=== PATIENT | female | born 1930 | race Caucasian/White ===

== ENCOUNTER 2017-02-18 13:08 | Inpatient (IN) | payer OTHER ==
[~2017-02-18] VITALS: Ht 142.2 cm; Wt 115.2 kg
[~2017-02-18 13:08] MED LIST: APIXABAN PO; ASPIR 8181 MG PO; ATORVASTATIN CA40 M1 PO; BACTRIM DS1 TAB PO; CLINDAMYCIN HC300 MG PO; COL100 PO; COLACE100 MG PO; COR3 PO; COZ50 PO; ELIQUIS2.5 MG PO; ELIQUIS5 MG PO; GLU500 PO; HYD25 PO; IPRATROPIUM BROM3 M2 HHN; KLOR-CON M1010 MEQ PO; L40 PO; LAC PO; LASIX40 MG PO; LEVAQUIN750 MG PO; LEVOTHYROXIN0.025 M2 PO; LEXAPRO PO; LEXAPRO10 MG PO; LOSARTAN POTASS1 TA6 PO; MAC100 PO; MEDDP PO; MICROZIDE PO; MOM PO; NEURONTIN100 MG PO; NOR5 PO; PRI20 PO; PRO40 PO; PROTONIX40 MG PO; PROVENTIL0.09 MG/A1 INH; PULMICORT0.5 MG/2 M IH; ROBCF PO; TRE400 PO; ZOS3PM IV
[2017-02-18 14:24] LABS: BASOPHIL % 0.3 % (0-2)
[2017-02-18 14:28] LABS: PLATELET COUNT 114 x10^3mcL (130-400); RED CELL DISTRIBUTION WIDTH 20.7 % (11.5-14.5)
[2017-02-18 14:38] LABS: CALCIUM 7.8 mg/dL (8.5-10.1); CARBON DIOXIDE 26.9 mmol/L (21-32); CHLORIDE SERUM 103 mmol/L (98-107); GLUCOSE SERUM 176 mg/dL (74-106); SODIUM SERUM 137 mmol/L (136-145)
[2017-02-18 14:41] LABS: ALBUMIN 3.5 g/dL (3.4-5.0); ALKALINE PHOSPHATASE 133 U/L (46-116); ALT/SGPT 14 U/L (14-59); AST/SGOT 16 U/L (15-37); BILIRUBIN TOTAL 0.9 mg/dL (0.20-1.00); HDL CHOLESTEROL 49 mg/dL (40-60); LIPASE 141 IU/L (73-393); TOTAL PROTEIN, SERUM 6.8 g/dL (6.4-8.2); TRIGLYCERIDES 129 mg/dL (<150)
[2017-02-18 14:42] LABS: CHOLESTEROL 103 mg/dL (<200); CHOLESTEROL/HDL RATIO 2.1
[2017-02-18 15:01] LABS: microscopic required? YES; urine erythrocyte TRACE (NEGATIVE)
[2017-02-18] MEDS ORDERED: ALDACTONE25 MG PO (15:15)
[2017-02-18] MEDS ORDERED: LIPITOR40 MG PO (15:15)
[2017-02-18] MEDS ORDERED: CARVEDILOL3.125 M1 PO (15:15)
[2017-02-18] MEDS ORDERED: ENTRESTO1 TA2 PO (15:16)
[2017-02-18 15:31] LABS: T3 TOTAL 0.77 ng/mL; rbc morphology (normal/abnorm) ABNORMAL (NORMAL)
[2017-02-18 15:47] LABS: FREE T4 1.05 ng/dL (0.76-1.46); FREE THYROXINE INDEX 2.7 ug/dL (1.4-4.5); T4(THYROXINE) 7.6 ug/dL (4.7-13.3)
[2017-02-18 16:37] VITALS: BP 123/96
[2017-02-18 16:43] VITALS: Ht 142.2 cm; Wt 115.2 kg
[2017-02-18 17:23] LABS: PHOSPHOROUS 3.1 mg/dL (2.5-4.9)
[2017-02-18 17:29] VITALS: BP 123/96
[2017-02-18 21:36] VITALS: BP 104/48
[2017-02-19 05:50] VITALS: BP 101/61
[2017-02-19 07:33] LABS: RED BLOOD CELLS 4.18 M/mm3 (4.10-5.10)
[2017-02-19 07:35] LABS: TOTAL IRON BINDING CAPACITY 309 ug/dL (250-450)
[2017-02-19 07:36] LABS: IRON 33 ug/dL (50-170)
[2017-02-19 07:45] VITALS: BP 110/55
[2017-02-19 12:07] VITALS: BP 98/52
[2017-02-19 18:01] VITALS: BP 95/42
[2017-02-19 22:05] VITALS: BP 99/46
[2017-02-20 06:14] VITALS: BP 93/57
[2017-02-20 07:20] LABS: BASOPHIL % 0.4 % (0-2)
[2017-02-20 07:22] LABS: CALCIUM 8.1 mg/dL (8.5-10.1); CARBON DIOXIDE 30.2 mmol/L (21-32); CHLORIDE SERUM 105 mmol/L (98-107); CREATININE SERUM 0.9 mg/dL (0.6-1.0); GLUCOSE SERUM 96 mg/dL (74-106); PHOSPHOROUS 3.5 mg/dL (2.5-4.9); PLATELET COUNT 86 x10^3mcL (130-400); POTASSIUM SERUM 4.3 mmol/L (3.5-5.1); RED CELL DISTRIBUTION WIDTH 20.8 % (11.5-14.5); SODIUM SERUM 138 mmol/L (136-145)
[2017-02-20] MEDS ORDERED: MECLIZINE HCL12.5 MG PO (08:25)
[2017-02-20] MEDS ORDERED: MYCP TOP (08:26)
[2017-02-20] MEDS ORDERED: PROTONIX40 MG/Pac1 PO (08:27)
[2017-02-20 09:03] VITALS: BP 101/61
[2017-02-20 09:24] VITALS: BP 101/61
[2017-02-20] MEDS ORDERED: NEU300 PO (09:30)
[2017-02-20] MEDS ORDERED: ROBAXIN-750750 MG PO (09:33)
[2017-02-20 11:15] VITALS: BP 101/61
== END 2017-02-20 12:46 | disposition home health service (06) | DRG 391 ==
LOC: ED 13:08 → DU 15:25 → MU 02-20 06:52
PROVIDERS: Family Medicine; Specialist; ADMIT Family Medicine Sports Medicine
DX: K21.9 Gastro-esophageal reflux disease without esophagitis (principal); I50.43 Acute on chronic combined systolic (congestive) and diastolic (congestive) heart failure; Z68.43 Body mass index [BMI] 50.0-59.9, adult; D68.69 Other thrombophilia; I69.354 Hemiplegia and hemiparesis following cerebral infarction affecting left non-dominant side; E11.65 Type 2 diabetes mellitus with hyperglycemia; D64.9 Anemia, unspecified; E03.9 Hypothyroidism, unspecified; Z95.0 Presence of cardiac pacemaker; Z79.82 Long term (current) use of aspirin; Z95.2 Presence of prosthetic heart valve; Z96.651 Presence of right artificial knee joint; Z88.8 Allergy status to other drugs, medicaments and biological substances; E66.01 Morbid (severe) obesity due to excess calories; G90.9 Disorder of the autonomic nervous system, unspecified; K74.60 Unspecified cirrhosis of liver; E83.51 Hypocalcemia; I11.0 Hypertensive heart disease with heart failure
CPT/HCPCS: 82962; 83880; 84439; 97110-GP; J7030; Q0092

== ENCOUNTER 2018-05-06 02:47 | Emergency (ER) | payer OTHER ==
[~2018-05-06] VITALS: Ht 142.2 cm; Wt 117.9 kg
[~2018-05-06 02:47] MED LIST changes: +ALDACTONE25 MG PO; +CARVEDILOL3.125 M1 PO; +ENTRESTO1 TA2 PO; +LIPITOR40 MG PO; +MECLIZINE HCL12.5 MG PO; +MYCP TOP; +NEU300 PO; +PROTONIX40 MG/Pac1 PO; +ROBAXIN-750750 MG PO
[2018-05-06 03:14] LABS: BASOPHIL % 0.4 % (0-2)
[2018-05-06 03:17] LABS: PLATELET COUNT 93 x10^3mcL (130-400)
[2018-05-06 03:56] LABS: CALCIUM 8.5 mg/dL (8.5-10.1); CARBON DIOXIDE 30.2 mmol/L (21-32); CHLORIDE SERUM 95 mmol/L (98-107); CREATININE SERUM 1.4 mg/dL (0.6-1.0); GLUCOSE SERUM 100 mg/dL (74-106); POTASSIUM SERUM 4.2 mmol/L (3.5-5.1); SODIUM SERUM 133 mmol/L (136-145)
[2018-05-06 04:02] LABS: ALBUMIN 3.4 g/dL (3.4-5.0); ALKALINE PHOSPHATASE 110 U/L (46-116); ALT/SGPT 15 U/L (14-59); AST/SGOT 17 U/L (15-37); BILIRUBIN TOTAL 0.8 mg/dL (0.20-1.00); LIPASE 198 IU/L (73-393); TOTAL PROTEIN, SERUM 6.5 g/dL (6.4-8.2)
[2018-05-06 07:20] VITALS: BP 121/78
== END 2018-05-06 07:20 | disposition home or self-care (01) ==
LOC: ED 02:47
PROVIDERS: Emergency Medicine
DX: R11.2 Nausea with vomiting, unspecified (principal); M25.512 Pain in left shoulder; I48.91 Unspecified atrial fibrillation; E11.9 Type 2 diabetes mellitus without complications; J45.909 Unspecified asthma, uncomplicated; I50.9 Heart failure, unspecified; I11.0 Hypertensive heart disease with heart failure; Z88.8 Allergy status to other drugs, medicaments and biological substances; Z95.0 Presence of cardiac pacemaker; Z98.890 Other specified postprocedural states; Z88.6 Allergy status to analgesic agent
CPT/HCPCS: 36415; J2270; Q0162

== ENCOUNTER 2018-05-12 14:13 | Emergency (ER) | payer OTHER ==
[~2018-05-12] VITALS: Ht 142.2 cm; Wt 122.5 kg
[2018-05-12 14:43] VITALS: Ht 142.2 cm; Wt 122.5 kg
[2018-05-12 16:20] LABS: BASOPHIL % 0.3 % (0-2)
[2018-05-12 16:27] LABS: PLATELET COUNT 92 x10^3mcL (130-400); RED CELL DISTRIBUTION WIDTH 17.4 % (11.5-14.5)
[2018-05-12 17:31] LABS: CALCIUM 8.2 mg/dL (8.5-10.1); CARBON DIOXIDE 30.1 mmol/L (21-32); CHLORIDE SERUM 90 mmol/L (98-107); CREATININE SERUM 1.8 mg/dL (0.6-1.0); GLUCOSE SERUM 95 mg/dL (74-106); POTASSIUM SERUM 4.4 mmol/L (3.5-5.1); SODIUM SERUM 128 mmol/L (136-145)
[2018-05-12 17:35] LABS: ALBUMIN 3.4 g/dL (3.4-5.0); ALKALINE PHOSPHATASE 126 U/L (46-116); ALT/SGPT 14 U/L (14-59); AST/SGOT 19 U/L (15-37); BILIRUBIN TOTAL 0.84 mg/dL (0.20-1.00); TOTAL PROTEIN, SERUM 6.6 g/dL (6.4-8.2)
[2018-05-12 19:43] VITALS: BP 96/53
== END 2018-05-12 19:43 | disposition short-term general hospital (02) ==
LOC: ED 14:13
PROVIDERS: Emergency Medicine
DX: R53.1 Weakness (principal); R79.89 Other specified abnormal findings of blood chemistry; I11.0 Hypertensive heart disease with heart failure; I50.9 Heart failure, unspecified; E11.9 Type 2 diabetes mellitus without complications; I48.91 Unspecified atrial fibrillation; Z86.73 Personal history of transient ischemic attack (TIA), and cerebral infarction without residual deficits; Z88.6 Allergy status to analgesic agent; Z88.8 Allergy status to other drugs, medicaments and biological substances
CPT/HCPCS: 36415; 83880

== ENCOUNTER 2018-08-26 15:13 | Inpatient (IN) | payer OTHER ==
[~2018-08-26] VITALS: Ht 167.6 cm; Wt 129.0 kg
[2018-08-26 15:22] VITALS: Ht 167.6 cm; Wt 129.0 kg
[2018-08-26 17:30] LABS: BASOPHIL % 0.4 % (0-2); CALCIUM 8.1 mg/dL (8.5-10.1); CARBON DIOXIDE 27.6 mmol/L (21-32); CHLORIDE SERUM 95 mmol/L (98-107); CREATININE SERUM 1.4 mg/dL (0.6-1.0); GLUCOSE SERUM 106 mg/dL (74-106); POTASSIUM SERUM 4.4 mmol/L (3.5-5.1); SODIUM SERUM 131 mmol/L (136-145)
[2018-08-26 17:31] LABS: PLATELET COUNT 87 x10^3mcL (130-400); RED CELL DISTRIBUTION WIDTH 15.5 % (11.5-14.5)
[2018-08-26 17:35] LABS: ALBUMIN 3.7 g/dL (3.4-5.0); ALKALINE PHOSPHATASE 123 U/L (46-116); ALT/SGPT 14 U/L (14-59); AST/SGOT 19 U/L (15-37); BILIRUBIN TOTAL 0.8 mg/dL (0.20-1.00); TOTAL PROTEIN, SERUM 6.9 g/dL (6.4-8.2)
[2018-08-26] MEDS ORDERED: ELIQUIS2.5 MG PO (18:09)
[2018-08-26] MEDS ORDERED: ALDACTONE25 MG PO (18:10)
[2018-08-26] MEDS ORDERED: METFORMIN HYDR500 M1 PO (18:10)
[2018-08-26] MEDS ORDERED: LIPITOR40 MG PO (18:10)
[2018-08-26] MEDS ORDERED: CARVEDILOL3.125 M1 PO (18:10)
[2018-08-26] MEDS ORDERED: LASIX40 MG PO (18:10)
[2018-08-26] MEDS ORDERED: PROTONIX40 MG PO (18:11)
[2018-08-26] MEDS ORDERED: LEXAPRO10 MG PO (18:11)
[2018-08-26] MEDS ORDERED: COLACE100 MG PO (18:11)
[2018-08-26] MEDS ORDERED: NEU300 PO (18:11)
[2018-08-26] MEDS ORDERED: TIROSINT25 MC1 PO (18:12)
[2018-08-26] MEDS ORDERED: PROAIR HFA8.5 GM IH (18:13)
[2018-08-26 20:52] VITALS: BP 107/54
[2018-08-27 06:05] VITALS: BP 91/51
[2018-08-27 06:27] LABS: BASOPHIL % 0.4 % (0-2)
[2018-08-27 06:49] LABS: ALKALINE PHOSPHATASE 92 U/L (46-116); ALT/SGPT 12 U/L (14-59); AST/SGOT 17 U/L (15-37); BILIRUBIN TOTAL 0.9 mg/dL (0.20-1.00); CALCIUM 8.1 mg/dL (8.5-10.1); CARBON DIOXIDE 30.6 mmol/L (21-32); CHLORIDE SERUM 100 mmol/L (98-107); CREATININE SERUM 1.3 mg/dL (0.6-1.0); GLUCOSE SERUM 87 mg/dL (74-106); MAGNESIUM 2.3 mg/dL (1.8-2.4); POTASSIUM SERUM 4.8 mmol/L (3.5-5.1); SODIUM SERUM 136 mmol/L (136-145)
[2018-08-27 06:51] LABS: ALBUMIN 3.1 g/dL (3.4-5.0); TOTAL PROTEIN, SERUM 5.8 g/dL (6.4-8.2)
[2018-08-27 07:21] LABS: PLATELET COUNT 73 x10^3mcL (130-400); RED CELL DISTRIBUTION WIDTH 15.2 % (11.5-14.5)
[2018-08-27 09:47] VITALS: BP 97/51
[2018-08-27 13:43] VITALS: BP 91/54
[2018-08-27 17:57] VITALS: BP 98/46
[2018-08-27 20:22] VITALS: BP 99/50
[2018-08-28 04:53] VITALS: BP 91/50
[2018-08-28 06:44] LABS: BASOPHIL % 0.4 % (0-2)
[2018-08-28 06:46] LABS: PLATELET COUNT 72 x10^3mcL (130-400); RED CELL DISTRIBUTION WIDTH 15.5 % (11.5-14.5)
[2018-08-28 07:26] LABS: ALKALINE PHOSPHATASE 91 U/L (46-116); ALT/SGPT 15 U/L (14-59); AST/SGOT 20 U/L (15-37); BILIRUBIN TOTAL 0.96 mg/dL (0.20-1.00); CARBON DIOXIDE 31.5 mmol/L (21-32); CHLORIDE SERUM 99 mmol/L (98-107); CREATININE SERUM 1.2 mg/dL (0.6-1.0); GLUCOSE SERUM 99 mg/dL (74-106); MAGNESIUM 2.3 mg/dL (1.8-2.4); PHOSPHOROUS 3.5 mg/dL (2.5-4.9); POTASSIUM SERUM 4.2 mmol/L (3.5-5.1); SODIUM SERUM 135 mmol/L (136-145)
[2018-08-28 07:37] LABS: ALBUMIN 3.2 g/dL (3.4-5.0); TOTAL PROTEIN, SERUM 5.7 g/dL (6.4-8.2)
[2018-08-28 09:54] VITALS: BP 94/56
[2018-08-28 13:29] VITALS: BP 103/51
[2018-08-28 13:40] VITALS: BP 103/51
== END 2018-08-28 17:50 | DRG 291 ==
LOC: ED 15:13 → DU 19:31
PROVIDERS: Emergency Medicine; ADMIT Internal Medicine Pulmonary Disease
DX: I11.0 Hypertensive heart disease with heart failure (principal); N17.0 Acute kidney failure with tubular necrosis; Z68.44 Body mass index [BMI] 60.0-69.9, adult; I50.33 Acute on chronic diastolic (congestive) heart failure; I48.91 Unspecified atrial fibrillation; Z96.651 Presence of right artificial knee joint; E66.01 Morbid (severe) obesity due to excess calories; Z96.1 Presence of intraocular lens; Z95.2 Presence of prosthetic heart valve; Z95.0 Presence of cardiac pacemaker; Z86.73 Personal history of transient ischemic attack (TIA), and cerebral infarction without residual deficits
CPT/HCPCS: 82962; 83880; 97110-GP; 97530-GP; J1940; J7040; P9047

== ENCOUNTER 2018-10-01 09:28 | Inpatient (IN) | payer OTHER | END 2018-10-13 19:25 | LOC: ED 09:28 → DU 14:59 → ED 09:28 → DU 14:59 → ED 09:28 → DU 14:59 → ED 09:28 → DU 14:59 → ED 09:28 → DU 14:59 → ED 09:28 → DU 14:59 | DX: E87.1 Hypo-osmolality and hyponatremia (principal); N17.0 Acute kidney failure with tubular necrosis; N39.0 Urinary tract infection, site not specified; Z68.44 Body mass index [BMI] 60.0-69.9, adult; I50.22 Chronic systolic (congestive) heart failure; K52.1 Toxic gastroenteritis and colitis; E87.5 Hyperkalemia; D69.6 Thrombocytopenia, unspecified; I11.0 Hypertensive heart disease with heart failure; E03.9 Hypothyroidism, unspecified; R53.81 Other malaise; M15.0 Primary generalized (osteo)arthritis; E66.01 Morbid (severe) obesity due to excess calories; D53.9 Nutritional anemia, unspecified; Z95.0 Presence of cardiac pacemaker; Z95.2 Presence of prosthetic heart valve; Z96.653 Presence of artificial knee joint, bilateral; Z86.73 Personal history of transient ischemic attack (TIA), and cerebral infarction without residual deficits; T40.2X5A Adverse effect of other opioids, initial encounter; Y92.018 Other place in single-family (private) house as the place of occurrence of the external cause ==

== ENCOUNTER 2018-10-15 15:00 | Inpatient (IN) | payer OTHER ==
[~2018-10-15] VITALS: Ht 142.2 cm; Wt 137.7 kg
[~2018-10-15 15:00] MED LIST changes: +ACETAMINOPHEN-H1 TA1 PO; +DIFLUCAN200 MG PO; +GLIPIZIDE5 M3 PO; +METFORMIN HYDR500 M1 PO; +PROAIR HFA8.5 GM IH; +TIROSINT25 MC1 PO
[2018-10-15 15:07] VITALS: Ht 142.2 cm; Wt 137.7 kg
[2018-10-15] MEDS ORDERED: DIFLUCAN200 MG PO (16:11)
[2018-10-15] MEDS ORDERED: GLIPIZIDE5 M2 PO (16:12)
[2018-10-15] MEDS ORDERED: COLACE100 MG PO (16:12)
[2018-10-15] MEDS ORDERED: LEVOTHYROXIN0.025 M2 PO (16:12)
[2018-10-15] MEDS ORDERED: PROTONIX40 MG/Pac1 PO (16:13)
[2018-10-15] MEDS ORDERED: ROBAXIN-750750 MG PO (16:13)
[2018-10-15] MEDS ORDERED: LIPITOR40 MG PO (16:14)
[2018-10-15] MEDS ORDERED: ELIQUIS2.5 MG PO (16:14)
[2018-10-15] MEDS ORDERED: CARVEDILOL3.125 M1 PO (16:14)
[2018-10-15] MEDS ORDERED: NEU300 PO (16:14)
[2018-10-15 16:23] LABS: BASOPHIL % 0.3 % (0-2)
[2018-10-15 16:25] LABS: PLATELET COUNT 64 x10^3mcL (130-400); RED CELL DISTRIBUTION WIDTH 16.3 % (11.5-14.5)
[2018-10-15 16:28] LABS: CALCIUM 8.8 mg/dL (8.5-10.1); CARBON DIOXIDE 32.7 mmol/L (21-32); CHLORIDE SERUM 99 mmol/L (98-107); CREATININE SERUM 1.2 mg/dL (0.6-1.0); GLUCOSE SERUM 84 mg/dL (74-106); POTASSIUM SERUM 4.2 mmol/L (3.5-5.1); SODIUM SERUM 132 mmol/L (136-145)
[2018-10-15 16:33] LABS: ALBUMIN 3.4 g/dL (3.4-5.0); ALKALINE PHOSPHATASE 92 U/L (46-116); ALT/SGPT 29 U/L (14-59); AST/SGOT 26 U/L (15-37); BILIRUBIN TOTAL 1.2 mg/dL (0.20-1.00); TOTAL PROTEIN, SERUM 5.9 g/dL (6.4-8.2)
[2018-10-15 20:16] VITALS: BP 120/54
[2018-10-16 05:50] VITALS: BP 99/48
[2018-10-16 07:02] LABS: CALCIUM 8.3 mg/dL (8.5-10.1); CARBON DIOXIDE 27.6 mmol/L (21-32); CHLORIDE SERUM 101 mmol/L (98-107); CREATININE SERUM 1.2 mg/dL (0.6-1.0); GLUCOSE SERUM 76 mg/dL (74-106); MAGNESIUM 1.9 mg/dL (1.8-2.4); POTASSIUM SERUM 4.5 mmol/L (3.5-5.1); SODIUM SERUM 135 mmol/L (136-145)
[2018-10-16 09:32] VITALS: BP 109/65
[2018-10-16 12:42] VITALS: BP 101/48
[2018-10-16 17:24] VITALS: BP 81/36
[2018-10-16 18:17] VITALS: BP 112/49
[2018-10-16 20:45] VITALS: BP 94/45; BP 94/51
[2018-10-17 06:04] VITALS: BP 83/58
[2018-10-17 07:08] LABS: CALCIUM 8.7 mg/dL (8.5-10.1); CARBON DIOXIDE 28.6 mmol/L (21-32); CHLORIDE SERUM 101 mmol/L (98-107); CREATININE SERUM 1.1 mg/dL (0.6-1.0); GLUCOSE SERUM 64 mg/dL (74-106); PHOSPHOROUS 3.3 mg/dL (2.5-4.9); SODIUM SERUM 138 mmol/L (136-145)
[2018-10-17 08:16] LABS: BASOPHIL % 0.2 % (0-2)
[2018-10-17 08:18] LABS: PLATELET COUNT 61 x10^3mcL (130-400); RED CELL DISTRIBUTION WIDTH 17.7 % (11.5-14.5)
[2018-10-17 09:00] VITALS: BP 94/41
[2018-10-17 10:18] LABS: UA SPECIFIC GRAVITY <=1.005 (1.005-1.035); microscopic required? YES; urine erythrocyte TRACE (NEGATIVE)
[2018-10-17 13:40] VITALS: BP 91/48
[2018-10-17 16:42] VITALS: BP 110/62
[2018-10-17 21:43] VITALS: BP 97/44
[2018-10-18 06:19] VITALS: BP 97/43
[2018-10-18 07:59] LABS: CALCIUM 8.7 mg/dL (8.5-10.1); CARBON DIOXIDE 27.7 mmol/L (21-32); CHLORIDE SERUM 100 mmol/L (98-107); CREATININE SERUM 1.4 mg/dL (0.6-1.0); GLUCOSE SERUM 67 mg/dL (74-106); POTASSIUM SERUM 5.3 mmol/L (3.5-5.1); SODIUM SERUM 136 mmol/L (136-145)
[2018-10-18 09:05] LABS: BASOPHIL % 0.5 % (0-2); PLATELET COUNT 73 x10^3mcL (130-400); RED CELL DISTRIBUTION WIDTH 18.5 % (11.5-14.5)
[2018-10-18 09:52] VITALS: BP 122/49
[2018-10-18] MEDS ORDERED: LASIX40 MG PO (13:27)
[2018-10-18 14:28] VITALS: BP 87/45
[2018-10-18 17:45] VITALS: BP 91/48
[2018-10-18 20:58] VITALS: BP 109/44
[2018-10-19 06:37] VITALS: BP 115/63
[2018-10-19 06:42] LABS: CALCIUM 8.2 mg/dL (8.5-10.1); CARBON DIOXIDE 30.9 mmol/L (21-32); CHLORIDE SERUM 99 mmol/L (98-107); CREATININE SERUM 1.3 mg/dL (0.6-1.0); GLUCOSE SERUM 96 mg/dL (74-106); SODIUM SERUM 134 mmol/L (136-145)
[2018-10-19 06:46] LABS: POTASSIUM SERUM 5.7 mmol/L (3.5-5.1)
[2018-10-19 09:24] VITALS: BP 137/49
[2018-10-19 12:50] VITALS: BP 131/42
[2018-10-19 16:30] LABS: CALCIUM 8.6 mg/dL (8.5-10.1); CARBON DIOXIDE 29.2 mmol/L (21-32); CHLORIDE SERUM 97 mmol/L (98-107); CREATININE SERUM 1.3 mg/dL (0.6-1.0); GLUCOSE SERUM 142 mg/dL (74-106); POTASSIUM SERUM 5.2 mmol/L (3.5-5.1); SODIUM SERUM 130 mmol/L (136-145)
[2018-10-19 18:04] VITALS: BP 126/51
[2018-10-19 21:26] VITALS: BP 135/53
[2018-10-20 05:20] VITALS: BP 101/52
[2018-10-20 08:08] LABS: BASOPHIL % 0.3 % (0-2)
[2018-10-20 08:09] LABS: PLATELET COUNT 52 x10^3mcL (130-400); RED CELL DISTRIBUTION WIDTH 17.9 % (11.5-14.5)
[2018-10-20 08:52] LABS: CALCIUM 8.9 mg/dL (8.5-10.1); CARBON DIOXIDE 34.7 mmol/L (21-32); CHLORIDE SERUM 98 mmol/L (98-107); CREATININE SERUM 1.2 mg/dL (0.6-1.0); GLUCOSE SERUM 109 mg/dL (74-106); MAGNESIUM 1.9 mg/dL (1.8-2.4); POTASSIUM SERUM 4.8 mmol/L (3.5-5.1); SODIUM SERUM 137 mmol/L (136-145)
[2018-10-20 10:17] VITALS: BP 108/53
[2018-10-20 11:14] VITALS: BP 108/53
== END 2018-10-20 13:30 | DRG 291 ==
LOC: ED 15:00 → DU 18:05
PROVIDERS: Emergency Medicine; Internal Medicine; Internal Medicine Pulmonary Disease; ADMIT Internal Medicine Pulmonary Disease
DX: I11.0 Hypertensive heart disease with heart failure (principal); N17.0 Acute kidney failure with tubular necrosis; J96.21 Acute and chronic respiratory failure with hypoxia; G93.41 Metabolic encephalopathy; B37.49 Other urogenital candidiasis; Z68.44 Body mass index [BMI] 60.0-69.9, adult; I50.23 Acute on chronic systolic (congestive) heart failure; T50.8X5D Adverse effect of diagnostic agents, subsequent encounter; I48.91 Unspecified atrial fibrillation; L25.9 Unspecified contact dermatitis, unspecified cause; E87.6 Hypokalemia; M54.9 Dorsalgia, unspecified; G89.29 Other chronic pain; J45.909 Unspecified asthma, uncomplicated; E66.01 Morbid (severe) obesity due to excess calories; Z71.3 Dietary counseling and surveillance; E03.9 Hypothyroidism, unspecified; Z86.73 Personal history of transient ischemic attack (TIA), and cerebral infarction without residual deficits
CPT/HCPCS: 82962; 83880; 97110-GP; 97116-GP; 97530-GP; B4164; J0610; J1940; J3010; J3490; J7030; J7040; P9047; Q0092